=== PATIENT | female | born 1980 | race Caucasian/White ===

== ENCOUNTER → 2016-08-05 | Outpatient (CLI) | payer OTHER | END | disposition home or self-care (01) | LOC: LAB.O 08:59 | PROVIDERS: ATTEND Nurse Practitioner Family | DX: E34.9 Endocrine disorder, unspecified (principal); E55.9 Vitamin D deficiency, unspecified ==

== ENCOUNTER → 2017-01-16 | Outpatient (CLI) | payer OTHER ==
--- NOTE | 2017-01-17 09:41 | RAD ---
EXAM DESCRIPTION: Chest,2 Views CLINICAL HISTORY: WHEEZING COMPARISON: November 22, 2010 TECHNIQUE: PA/lateral FINDINGS: Coarsened infrahilar markings are present bilaterally and more prominent than seen on remote examination. Patchy bronchitis or early bronchopneumonia particularly in the left infrahilar region is suspected. No associated pleural effusions are noted. The heart is normal in size and shape with no evidence of vascular congestion. The lida and mediastinum demonstrate normal contours. The bony spine and chest wall is normal for age in appearance. IMPRESSION: Coarse bilateral left worse than right infrahilar markings suggesting bronchitis or likely orally basilar bronchopneumonia. Electronically signed by: Pablo Pierre MD 01/17/2017 9:40 AM INTERNATIONAL OPERATIONS MANAGER
== END | disposition home or self-care (01) ==
LOC: YCFC.O 11:11
PROVIDERS: ATTEND Nurse Practitioner Family
DX: R06.2 Wheezing (principal)

== ENCOUNTER → 2017-08-17 | Outpatient (CLI) | payer OTHER | LOC: GMAM 19:02 | PROVIDERS: ATTEND Family Medicine | DX: R10.84 Generalized abdominal pain (principal); A09 Infectious gastroenteritis and colitis, unspecified ==

== ENCOUNTER → 2017-08-18 | Outpatient (CLI) | payer OTHER ==
--- NOTE | 2017-08-18 10:52 | CT ---
EXAM DESCRIPTION: Abdoment/Pelvis w/o Contrast CLINICAL HISTORY: 37 years Female, ABDOMINAL PAIN COMPARISON: None available. TECHNIQUE: Contiguous 3 mm axial images were obtained from the lung bases to the level of the proximal femora without the administration of intravenous or oral contrast. Sagittal and coronal reconstructions were reviewed. FINDINGS: Limited evaluation of the solid organs due to the lack of intravenous contrast. THORAX: The imaged lower thorax demonstrates no gross abnormality. LIVER: The liver demonstrates normal size and density with no intrahepatic biliary ductal dilatation. GALLBLADDER: Surgically absent. PANCREAS: Appears normal with no cystic or solid lesions. SPLEEN: Normal ADRENAL GLANDS: Normal with no nodules or masses. KIDNEYS: Both kidneys are symmetric in size and contour with no hydronephrosis or nephrolithiasis or perinephric fluid collections. The visualized ureters appear grossly unremarkable. STOMACH: The stomach is well-distended with no gross abnormality. SMALL BOWEL: The small bowel loops demonstrate variable degrees of distention with no abnormal dilatation or other signs to suggest bowel obstruction. LARGE BOWEL: Majority of the colon is not well-distended limiting evaluation. Multiple appendicoliths are noted. No evidence of free intraperitoneal air or fluid. RETROPERITONEUM: The abdominal aorta is nonaneurysmal with no significant atherosclerosis. The inferior vena cava is normal in size and caliber. Few subcentimeter mesenteric lymph nodes are identified. URINARY BLADDER:The urinary bladder is well-distended with no gross abnormality. The uterus and adnexa appear normal. ADDITIONAL FINDINGS: None. BONES: No significant degenerative changes are identified in the visualized bones.No evidence of osteophytic or osteoblastic lesions. IMPRESSION: 1. Multiple appendicoliths are identified. However no evidence of acute appendicitis. 2. No other acute process is noted. This exam was performed according to our departmental dose-optimization program, which includes automated exposure control, adjustment of the mA and/or kV according to patient size and/or use of iterative reconstruction technique. Electronically signed by: Louise Painting MD 08/18/2017 10:50 AM CDT
== END ==
LOC: CT 08:09
PROVIDERS: ATTEND Family Medicine
DX: R10.84 Generalized abdominal pain (principal); K38.9 Disease of appendix, unspecified

== ENCOUNTER 2017-08-22 18:05 | Inpatient (IN) | payer OTHER ==
--- NOTE | 2017-08-22 18:08 | HP ---
SUPERVISING PHYSICIAN: Mike Condon M.D. CHIEF COMPLAINT: Right lower quadrant pain with nausea and vomiting. HISTORY OF PRESENT ILLNESS: Ms. Cano is a 37 year-old female patient of Dr. Buckley. In the past month she has been having intermittent diarrhea she describes as mucousy with some blood along with some intermittent right lower quadrant pain. The pain has increasingly worsened and is becoming more frequent. She this past week on went to Dr. Stauffer who did a workup, including stool cultures and stool leukocytes along with Clostridium Difficile which were all negative. She continued to have increasing symptoms and presented to Dr. Stauffer's office today at which time she had a CT of the questions completed with contrast and per radiology interpretation there was a finding of multiple appendicoliths with no evidence of acute appendicitis and no other acute processes noted. Laboratory studies last showed she had a white count of 10,600. Chemistries were fairly unremarkable except for a lipase that was slightly elevated at 120. Given the severity of her symptoms and increasing pain and frequency, and findings of the appendicoliths on the CT with physical assessment of rebound tenderness on palpation to the right lower quadrant Dr. Stauffer requested that she be admitted to the hospitial. She is of childbearing age and is not currently on any control as her has had a vasectomy, but her last menstrual period was [address] Stauffer consulted with Dr. Alexandre who recommended the patient be admitted for continued workup and management with fluids, pain management and control of her nausea, and have consultation this morning with Dr. Alexandre as well as provider contracting consultant GI. She presented as a direct admission from [facility] in stable condition. PAST MEDICAL HISTORY: 1. Asthma. 2. History of ulcers. 3. Remote history of irritable bowel syndrome. 4. History of anxiety. 5. Chronic tobacco abuse. PAST SURGICAL HISTORY: 1. Tonsillectomy at age 16. 2. Cholecystectomy in 2009. CURRENT MEDICATIONS: 1. Benadryl 25 mg b.i.d. 2. Patanase 1 to 2 sprays daily. 3. Melatonin 2 tablets at bedtime. 4. Albuterol handheld inhaler 90 mcg in haled every 6 hours as needed. ALLERGIES: KEFLEX WHICH RESULTED IN A SEVERE RASH AND LATEX. FAMILY HISTORY: Grandfather from a heart attack. Mother has history of anemia, stomach ulcers and anxiety. Father had a double lung transplant for pulmonary fibrosis. SOCIAL HISTORY: The patient works as a nurse at [employer]. She is and lives in [place]. She currently smokes 1/2 pack a day and drinks a rare glass of wine and does not use illicit drugs. REVIEW OF SYSTEMS: CONSTITUTIONAL: Denies any chills, fever, but notes some general malaise. HEENT: Denies any headaches, sore throat, nasal congestion, ear aches. RESPIRATORY: Denies any cough, wheezing, shortness of breath, exertional dyspnea. CARDIOVASCULAR: Denies any chest pains, palpitations, syncopal episodes or any edema. GASTROINTESTINAL: As noted in history of present illness, moderate to severe right lower quadrant pain intermittent over the last 2 to 3 weeks with associated nausea, vomiting and diarrhea described as mucousy and bloody at times. GENITOURINARY: Denies any dysuria, hematuria, polyuria or other urinary symptoms. NEUROLOGIC: Denies any ataxia, seizures, syncopal episodes or other neurological deficits. PHYSICAL EXAMINATION: VITAL SIGNS: Temperature 98.0, pulse 86, blood pressure 126/86, respirations 16 , satting 97% on room air. Admission weight 80.3 kg. GENERAL: The patient on admission to the Medical/Surgical floor was in some obvious distress from pain but was able to get comfortable with Dilaudid and was actually having active vomiting which was able to be controlled with Phenergan. She was alert and oriented. Appears well nourished but somewhat dehydrated. HEENT: Tympanic membranes are clear bilaterally. Oropharynx is pink with mucosal membranes being dry. No lesions are noted. NECK: Supple, non-tender with full range of motion. No jugular venous distention. CHEST: Clear to auscultation bilaterally without any rhonchi, wheezing or rales. CARDIOVASCULAR: Regular rate and rhythm without appreciable murmurs, gallops, or rubs. ABDOMEN: Soft with tenderness noted to the right lower quadrant with some rebound tenderness. No guarding. Bowel sounds were active. NEUROLOGIC: She is alert and oriented times three. Cranial nerves II-XII are grossly intact. LABORATORY STUDIES: CBC on admission showed a white count of 9,100 with hemoglobin 14.6, hematocrit 42.6, platelet count 329,000. Differential showed to be without a left shift. Electrolytes showed just a mild hypokalemia with 3.4 potassium, BUN 11, creatinine 0.6, calcium 9.4. Liver function are all within normal limits. Lipase 24, amylase 61. Serum HCG was pending. Lactic acid pending. C reactive protein pending. Sed rate pending. Stool workup including cultures, occult blood, fecal leukocyte esterase and Clostridium Difficile pending. Giardia antigen was pending from the clinic. Stool workup in the clinic showed stool cultures negative for any pathogenic organisms. Leukocyte esterase was negative. Clostridium Difficile antigen and toxin were negative. Rotavirus was negative. RADIOLOGY: CT of the abdomen today with contrast per radiology interpretation showed multiple appendicoliths identified, however no evidence of acute appendicitis and there was no acute process noted. ASSESSMENT: 1. Acute abdominal pain, right lower quadrant, uncertain etiology although concern for a possible acute appendicitis with findings of multiple appendicoliths on current CT. 2. Chronic diarrhea with current stool cultures showing to be without any pathogenic organisms with the patient having a history of previous cholecystectomy. 3. Nausea and vomiting secondary to #1. 4. Moderate dehydration secondary to above. 5. Chronic nicotine abuse. 6. History of asthma. 7. Questionable history of irritable bowel syndrome. 8. History of anxiety currently on no medications. 9. History of ulcers not currently on PPI. 10. Electrolyte imbalance with a mild hypokalemia secondary to from persistent vomiting and extended diarrhea. PLAN: The patient is going to be admitted to the Medical/Surgical floor tonight. She will be given fluids. Further workup to include stool cultures, Clostridium Difficile, leukocytes and occult blood. Dr. Alexandre as well as GI will be consulted in the morning. Given the concern for possible appendicitis and reported bloody, mucousy stools along with severity of symptoms, although afebrile with no obvious leukocytosis, I will go ahead and start her on Zosyn 3.375 every 6 hours until she can have further evaluation in the morning. She will be given a liter of LR followed by D5 half normal saline with 20 of potassium at 150 mL an hour. Will make her NPO for bowel rest. She will be given Dilaudid for pain control and Phenergan and Zofran as needed for nausea. I will plan to do an abdominal series in the morning as well as repeat laboratory studies. Will anticipate length of stay to be at least 2 to 3 days. Until clinically stable, will continue to monitor and treat appropriately. #[id number] [facility]
[2017-08-22] MEDS ORDERED: LACTATED RINGERS 1,000 ML ONE (18:09)
[2017-08-22] MEDS ORDERED: PROMETHAZINE HCL INJ 25 MG in SODIUM CHLORIDE 0.9% 50ML 50 ML IVPB ONE (18:09)
[2017-08-22] MEDS ORDERED: ONDANSETRON INJ 4 MG/2 ML VIAL ONE (18:09)
[2017-08-22] MEDS ORDERED: LACTATED RINGERS 1,000 ML IVS ONE (18:10)
[2017-08-22] MEDS ORDERED: SODIUM CHLORIDE 0.9% (FLUSH) 10 ML SYG IV PRN (18:14)
[2017-08-22] MEDS ORDERED: ONDANSETRON INJ 4 MG/2 ML VIAL IV ONE (18:15)
[2017-08-22] MEDS ORDERED: PROMETHAZINE HCL INJ 25 MG/ML VIAL ONE ×2 (18:18→23:05)
[2017-08-22] MEDS ORDERED: ONDANSETRON INJ 4 MG/2 ML VIAL IV PRN (18:18)
[2017-08-22] MEDS ORDERED: SODIUM CHLORIDE 0.9% 50ML 50 ML ONE ×2 (18:18→23:05)
[2017-08-22] MEDS ORDERED: PANTOPRAZOLE SODIUM IV 40 MG VIAL IV SCH (18:30)
[2017-08-22] MEDS ORDERED: IV SET AND CAP CHANGE INJ INJ SCH (18:30)
[2017-08-22] MEDS ORDERED: HYDROmorphone HCL INJ 2 MG/ML VIAL IV ONE (18:35)
[2017-08-22] MEDS ORDERED: PIPERACILLIN/TAZOBACTAM 3.375 GM VIAL IVPB ONE (19:35)
[2017-08-22] MEDS ORDERED: SODIUM CHL 0.9% 50ML MIN-BAG+ 50 ML IVPB ONE (19:35)
[2017-08-22] MEDS: KCL 20MEQ/D5 1/2NS 1,000 ML IVS PRN (20:59)
[2017-08-22] MEDS: NICOTINE PATCH 14 MG TD SCH (21:00)
[2017-08-22] MEDS ORDERED: SODIUM CHLORIDE 0.9% 100ML 100 ML IVPB ONE (21:09)
[2017-08-22] MEDS: PIPERACILLIN/TAZOBACTAM 3.375 GM in SODIUM CHLORIDE 0.9% 100ML 100 ML IVPB SCH (21:16)
--- NOTE | 2017-08-22 21:35 | CONS ---
DATE OF CONSULTATION: 08/22/17 REFERRING PHYSICIAN: Hospitalist Group, Pablo Parrish NP HISTORY OF PRESENT ILLNESS: The patient is a now 38 year-old female who was admitted with a several month history of nausea, vomiting, diarrhea with blood per rectum, some mucousy diarrhea. She complains of night sweats for approximately a month. She denies bloody vomitus and she has lost some weight. States that her clothes are fitting somewhat loose. PAST MEDICAL HISTORY: 1. Asthma. 2. History of peptic ulcer disease. 3. Possibly irritable bowel syndrome. 4. Vertigo in the past. PAST SURGICAL HISTORY: 1. Status post tonsillectomy. 2. Cholecystectomy. CURRENT MEDICATIONS: 1. Xopenex inhaler. 2. Albuterol inhaler. 3. Melatonin. 4. Benadryl for rest. ALLERGIES: KEFLEX AND LATEX. FAMILY HISTORY: Positive for chronic lung disease, diabetes, depression and coronary artery disease. SOCIAL HISTORY: The patient is . Works as a nurse. She uses alcohol moderately. Has likely at least a 20 pack year history of tobacco abuse and still smokes 1/2 pack a day. She is also the mother of 2 children by vaginal delivery. PHYSICAL EXAMINATION: LABORATORY: At time of admission, potassium 3.4, creatinine 0.67. Liver functions are within normal limits. Amylase and lipase 61 and 64. test is negative. Lactic acid is 1.2, magnesium 2, C reactive protein is 0.5. White blood cell count 91% with 44% neutrophils. Hemoglobin 14.6, platelet count 329,000. CT scan from last Monday was reviewed that shows basically a decompressed left colon, stool in the right colon. No dilated loops of small bowel. No free air or free fluid. There were fecaliths noted in the appendix or appendicoliths, but no inflammatory changes in that area. IMPRESSION: 1. Abdominal pain with mucousy bloody stools for several months. 2. Nausea and vomiting for several months. 3. Night sweats for a month. She has normal lab work and her CT is nondiagnostic. PLAN: I agree with IV hydration, NPO status. Would treat her with Protonix. Do not disagree with the Zosyn. Lab and x-ray ordered for in the morning. Will obtain a GI consultation in the morning if we have one tomorrow in [place]. #[id number] [facility]
[2017-08-22] MEDS: PROMETHAZINE HCL INJ 25 MG in SODIUM CHLORIDE 0.9% 50ML 50 ML IVPB PRN (23:14)
[2017-08-22] MEDS: HYDROmorphone HCL INJ 2 MG/ML VIAL IV PRN (23:24)
[2017-08-23] MEDS ORDERED: PIPERACILLIN/TAZOBACTAM 3.375 GM VIAL IVPB ONE ×4 (02:21→15:03)
[2017-08-23] MEDS ORDERED: SODIUM CHL 0.9% 100ML MINI-BAG 100 ML IVPB ONE (02:21)
[2017-08-23] MEDS: PIPERACILLIN/TAZOBACTAM 3.375 GM in SODIUM CHLORIDE 0.9% 100ML 100 ML IVPB SCH ×3 (03:10→15:12)
[2017-08-23] MEDS ORDERED: PROMETHAZINE HCL INJ 25 MG/ML VIAL ONE ×2 (04:40→10:13)
[2017-08-23] MEDS ORDERED: SODIUM CHLORIDE 0.9% 50ML 50 ML ONE ×2 (04:41→10:15)
[2017-08-23] MEDS: HYDROmorphone HCL INJ 2 MG/ML VIAL IV PRN ×2 (04:46→10:27)
[2017-08-23] MEDS: PROMETHAZINE HCL INJ 25 MG in SODIUM CHLORIDE 0.9% 50ML 50 ML IVPB PRN ×2 (04:46→10:29)
[2017-08-23] MEDS: KCL 20MEQ/D5 1/2NS 1,000 ML IVS PRN (06:16)
--- NOTE | 2017-08-23 07:20 | RAD ---
CLINICAL HISTORY:abdominal pain. :1980. Sex:Female. TECHNIQUE: Supine and upright views of the abdomen. There is no intestinal dilatation. Cholecystectomy clips are noted. There is no mass. There is no free air. There is no opaque calculus. Skeletal structures are unremarkable. The visible lung bases are clear IMPRESSION: 1. No acute radiographic findings.. Electronically signed by: Vick Carson MD 08/23/2017 7:18 AM CDT Workstation: [id number]
[2017-08-23] MEDS ORDERED: SODIUM CHLORIDE 0.9% 100ML 100 ML IVPB ONE ×2 (07:56→15:03)
[2017-08-23] MEDS: NICOTINE PATCH 14 MG TD SCH (08:29)
[2017-08-23] MEDS ORDERED: OLOPATADINE HCL SCH (09:00)
--- NOTE | 2017-08-23 09:48 | PN ---
SUPERVISING PHYSICIAN: Mike Condon MD DATE: 08/23/17 SUBJECTIVE: The patient is still having some abdominal pain, mainly right lower quadrant. She has not had a stool since she has been here in the hospital. Previously on 08/17/17, she had a stool study which was negative for any fecal leukocytes and negative for any cultures or C. difficile as well as rotavirus at that time. She has required Dilaudid for pain control. She is also complaining of some intermittent diaphoresis. OBJECTIVE: VITAL SIGNS: Blood pressure 99/67. Heart rate 74. Respiratory rate 16. Temperature 98.6. Oxygen saturation 100%. GENERAL: Ms. Cano is a 37-year-old female who currently is in severe distress. NEUROLOGIC: Alert and oriented. LUNGS: Clear to auscultation bilaterally. CARDIOVASCULAR: Regular rate and rhythm. Normal S1, S2. ABDOMEN: Soft. She does have hypoactive bowel sounds. She has tenderness to palpation in the right lower quadrant, even a little bit on the left lower quadrant as well. No epigastric tenderness to palpation and at this time. GENITOURINARY: Deferred. EXTREMITIES: Lower extremities with no edema. Pulses 2+. LABORATORY: Labs were reviewed and show a normal CBC with a differential showing 21% neutrophils, 70% lymphocytes, 6% monocytes, 3% eosinophils. Chemistry unremarkable. CRP and ESR were negative. Lipase 19. Abdominal x- ray done this morning was negative. ASSESSMENT: 1. Right lower quadrant abdominal pain. 2. Diarrhea. 3. Dehydration secondary to nausea, vomiting and diarrhea. 4. Chronic nicotine dependency. PLAN: The surgeon has been consulted and is not planning on any sort of intervention at this point as the workup has been negative. I have contacted the GI specialist, Dr. Montero, and he is going to see the patient. He has not given any orders as of yet. Due to the normal labs, I will probably not recheck any tomorrow and we will pretty much defer to Dr. Montero on further treatment at this point since the workup has been negative. [facility][id number] [facility]
[2017-08-23] MEDS ORDERED: PEG-ELECTROLYTE 4,000 ML BTTL PO ONE (09:51)
--- NOTE | 2017-08-23 13:32 | CONS ---
DATE OF CONSULTATION: 08/23/17 REFERRING PHYSICIAN: Hospitalist group, Pablo Parrish NP HISTORY OF PRESENT ILLNESS: This is a 37-year-old female with no significant medical history aside from peptic ulcer disease and questionable irritable bowel syndrome presenting with worsening chronic diarrhea. She admits to over four year history of loose stools and given a presumed diagnosis of irritable bowel syndrome. For the last two months, worsening diarrhea, increased frequency, up to 15 bowel movements a day, associated mucus, blood and fecal incontinence. In addition, she admits to nocturnal awakening. Her last colonoscopy was over 7 years ago and was grossly unremarkable based on her verbal report. At the time, she had a cholecystectomy. She was recently admitted for worsening diarrhea, but also association abdominal pain mostly located in the right jorge-abdomen, chills, no fevers. No sick contacts. No recent antibiotic use aside from Flagyl during hospital stay. Her grandmother may have been diagnosed with Crohn's disease, but she is not sure of this. She also admits to frequent night sweats. Weight overall stable. PAST MEDICAL HISTORY: 1. Asthma. 2. History of peptic ulcer disease. 3. Possible irritable bowel syndrome. 4. Vertigo. PAST SURGICAL HISTORY: 1. Tonsillectomy. 2. Cholecystectomy. CURRENT MEDICATIONS: 1. Xopenex. 2. Albuterol. 3. Melatonin. 4. Benadryl. ALLERGIES: KEFLEX, LATEX. FAMILY HISTORY: Possible Crohn's disease in the grandmother. SOCIAL HISTORY: No alcohol, no drugs. 20-pack year of smoking, actively one pack a day. LABORATORY: At time of admission, potassium 3.4, creatinine 0.56. Liver function tests normal. Amylase and lipase within normal limits at 61 and 64. Lactic acid 1.2. Hemoglobin 14.6, platelet count 329,000. CRP 0.5. WBC 9,100 with 90% neutrophils. C. difficile antigen and toxin negative. Rotavirus negative. ESR 15. Other stool studies including culture for Salmonella, Shigella, E. coli, Campylobacter, Yersinia negative. Negative for fecal leukocytes. RADIOLOGY: CT abdomen and pelvis: Decompressed left colon, stool in the right colon, nondilated loops of small bowel, no free air or free fluid. Fecaliths were noted in the appendix, but no inflammatory changes in this area. ASSESSMENT/PLAN: This is a 29-year-old female with acute on chronic diarrhea and abdominal pain. No positive inflammatory markers noted, evidence of anemia or significant inflammatory changes in cross-sectional imaging. However, given the severity of her symptomatology, need to rule out colonic inflammatory process. We will plan for a colonoscopy with terminal ileum intubation, random colon biopsies. #[id number] [facility]
[2017-08-23 17:58] VITALS: BP 127/78; TEMP 97.8; O2SAT 96
--- NOTE | 2017-08-24 01:07 | DS ---
SUPERVISING PHYSICIAN: Mike Condon M.D. ADMISSION DIAGNOSIS: 1. Acute abdominal pain right lower quadrant. 2. Chronic diarrhea with noted negative stool cultures. 3. Nausea and vomiting with dehydration. 4. Chronic nicotine dependency. 5. Possible irritable bowel syndrome. DISCHARGE DIAGNOSIS: 1. Acute abdominal pain right lower quadrant. 2. Chronic diarrhea with noted negative stool cultures. 3. Nausea and vomiting with dehydration. 4. Chronic nicotine dependency. 5. Possible irritable bowel syndrome. HOSPITAL COURSE: Ms. Cano is a 37 year-old female who is a patient of Dr. Stauffer's. She states for the past couple of months she has had some diarrhea and for the last month or so this has been associated with some abdominal pain and intermittent sweats. She states that sometimes the stool is loose stool and sometimes it is mucousy with some blood. She was seen by Dr. Stauffer and had a CT scan of the abdomen which was pretty much unremarkable. She has stool studies which were negative as well. When she went to the followup appointment with Dr. Stauffer today, she was not having any improvement in her symptoms and therefore was referred for admission. She was seen by Dr. Alexandre initially and he did not recommend any surgical intervention. It was highly unlikely that there was any appendicitis. However, he was in agreement that she did need a GI consultation. I spoke with Dr. Montero who came in this morning and saw the patient, and recommended a colonoscopy. He ordered Golytely as well as 2 soap suds enemas. She actually went back for the procedure but Anesthesia felt it was risky to do the procedure due to her continued vomiting and possibility for aspiration given she has just had the Golytely. Therefore the procedure was cancelled. He still recommended the colonoscopy, but given the fact that she had normal white count and did not appear to be infectious, it was felt that she could be discharged and this be done as an outpatient. I spoke with Dr. Stauffer and he agreed. Will see her tomorrow in the office at 2:45 on 08/24/17 for followup. At that point, he is going to try to set up an outpatient colonoscopy with Dr. Bangura who will be here next week. I spoke with Dr. Alexandre who agrees with that plan as well. Dr. Condon who is my collaborating physician, actually came and visited with the patient regarding the plan and she was in agreement and wanted to go home. Therefore she was discharged in stable condition today. PLAN: I have provided Zofran as well as Promethazine for medications to be taken at home. I have recommended a clear liquid diet and advance as tolerated as well. #[id number] [facility]
== END 2017-08-23 17:30 | disposition home or self-care (01) | DRG 379 ==
LOC: MS 18:05
PROVIDERS: ADMIT Nurse Practitioner Family; ATTEND Nurse Practitioner
DX: K92.1 Melena (principal); J45.909 Unspecified asthma, uncomplicated; E87.6 Hypokalemia; R61 Generalized hyperhidrosis; E86.0 Dehydration; K58.0 Irritable bowel syndrome with diarrhea; R11.2 Nausea with vomiting, unspecified; R10.31 Right lower quadrant pain; F41.9 Anxiety disorder, unspecified; F17.210 Nicotine dependence, cigarettes, uncomplicated; Z53.09 Procedure and treatment not carried out because of other contraindication; Z87.11 Personal history of peptic ulcer disease; Z91.040 Latex allergy status; Z88.1 Allergy status to other antibiotic agents; Z79.899 Other long term (current) drug therapy

== ENCOUNTER → 2017-09-01 | Outpatient (CLI) | payer OTHER | LOC: LAB.O 13:19 | PROVIDERS: ATTEND Internal Medicine Gastroenterology | DX: R19.7 Diarrhea, unspecified (principal) ==

== ENCOUNTER → 2018-12-13 | Outpatient (CLI) | payer BC ==
--- NOTE | 2018-12-13 11:48 | RAD ---
EXAM DESCRIPTION: Foot,Right 3 Views CLINICAL HISTORY: PAIN IN RIGHT FOOT COMPARISON: None Available. TECHNIQUE: AP, LATERAL, AND OBLIQUE FINDINGS: The visualized bones appear well mineralized. No acute fracture or dislocation. The soft tissues appear grossly unremarkable. IMPRESSION: Normal radiographs of the right foot. Electronically signed by: Louise Painting MD 12/13/2018 11:46 AM CDT
== END ==
LOC: RAD 11:18
PROVIDERS: ATTEND Orthopaedic Surgery
DX: M79.671 Pain in right foot (principal)

== ENCOUNTER → 2019-05-17 | Outpatient (CLI) | payer BC | DX: F33.1 Major depressive disorder, recurrent, moderate (principal); F41.1 Generalized anxiety disorder; E55.9 Vitamin D deficiency, unspecified; D51.8 Other vitamin B12 deficiency anemias ==

== ENCOUNTER 2019-07-05 05:40 | Day surgery (SDC) | payer BC ==
[2019-07-05] MEDS ORDERED: LACTATED RINGERS 1,000 ML ONE ×2 (06:53→13:06)
[2019-07-05] MEDS ORDERED: LIDOCAINE 1% 10 ML VIAL INJ ONE (07:00)
[2019-07-05] MEDS ORDERED: DEXAMETHASONE INJ 4 MG/ML VIAL ONE (07:00)
[2019-07-05] MEDS ORDERED: SODIUM CHLORIDE 0.9% 50 ML VIAL ONE (07:00)
[2019-07-05] MEDS ORDERED: FAMOTIDINE 10 MG/ML ML IV ONE (07:00)
[2019-07-05] MEDS ORDERED: MAGNESIUM SULFATE INJ 1 GM/2 ML VIAL ONE (07:00)
[2019-07-05] MEDS ORDERED: diphenhydrAMINE HCL 50 MG/ML VIAL ONE (07:00)
[2019-07-05] MEDS ORDERED: PROPOFOL 200 MG/20 ML VIAL IV ONE (07:00)
[2019-07-05] MEDS ORDERED: BUPIVACAINE 0.5% W/EPI 30 ML VIAL INJ ONE ×2 (08:26→11:07)
[2019-07-05] MEDS ORDERED: LACTATED RINGERS 1,000 ML IVS ONE (09:32)
[2019-07-05] MEDS ORDERED: MIDAZOLAM INJ 2 MG/2 ML VIAL ONE (10:57)
[2019-07-05] MEDS ORDERED: fentaNYL CITRATE INJ 50 MCG/ML 2 ML AMP ONE ×2 (10:57→12:33)
[2019-07-05] MEDS ORDERED: ROCURONIUM BROMIDE 10 MG/ML VIAL ONE (10:57)
[2019-07-05] MEDS ORDERED: DEXMEDETOMIDINE HCL 200 MCG/2 ML INJ IV ONE (10:57)
[2019-07-05] MEDS ORDERED: KETAMINE HCL 100 MG/ML VIAL ONE (10:57)
[2019-07-05] MEDS ORDERED: BUPIVACAINE LIPOSOME 13.3 MG/ML VIAL INJ ONE (11:24)
[2019-07-05] MEDS ORDERED: SUGAMMADEX SODIUM 200 MG/2 ML VIAL IV ONE (12:15)
[2019-07-05] MEDS ORDERED: ONDANSETRON INJ 4 MG/2 ML VIAL ONE (13:03)
[2019-07-05] MEDS: HYDROmorphone HCL INJ 2 MG/ML VIAL ONE ×5 (13:07→13:47)
[2019-07-05] MEDS ORDERED: MEPERIDINE HCL 50 MG/ML VIAL ONE (13:11)
--- NOTE | 2019-07-05 13:28 | OP ---
DATE OF PROCEDURE: 07/05/19 PREOPERATIVE DIAGNOSIS: 1. Desiring sterilization. 2. Internal and external hemorrhoids. POSTOPERATIVE DIAGNOSIS: 1. Desiring sterilization. 2. Internal and external hemorrhoids. PROCEDURE: 1. Laparoscopic bilateral tubal ligation. 2. Complete excision of internal and external hemorrhoids x2. 3. Bilateral pudendal nerve blocks for postoperative pain control. SURGEON: Mike Early MD. ANESTHESIA: General. FINDINGS: Both tubes were easily identified. There were no scars in the pelvis. They were both divided, ligated and cauterized. Two large hemorrhoid complexes were seen both right anterior and posterior. There was another one more towards the posterior midline that was combined in the right posterior closure. The left side did not have significant internal or external hemorrhoids. There were some external, but not very prominent. COMPLICATIONS: None. ESTIMATED BLOOD LOSS: Minimal. SPECIMEN: Hemorrhoids. PLAN: Discharge. INDICATION: As stated. PROCEDURE: General anesthesia was induced. She was prepped and draped in sterile fashion. 0.5% Marcaine with epinephrine was used at all incision sites. While maintaining upward traction, a mellisa was made at the base of the umbilicus. Veress needle was introduced. There was free flow of fluid into the peritoneal cavity, which was insufflated to an appropriate level of CO2 gas. The 5 mm trocar was placed through the previous incision we opened up. The abdomen was insufflated. There were two other 5 mm ports placed under direct vision without difficulty. The patient was placed head down. The small bowel was gently maneuvered out of the pelvis. We then easily identified the fallopian tubes. The right one was lifted through the 0 PDS Endoloop with care to get about 2 cm from the uterus and then it was tied into loop and then divided with scissors. The tips were then cauterized. The left side was also done. I easily identified the fallopian tube. It was elevated, a loop placed around the bottom creating a large loop. It was tied securely and then divided with scissors and cauterized at its base. Photodocumentation was performed. The procedure went well. At that time, the abdomen was desufflated. The wounds were closed with Monocryl and dressings were applied. She was in the lithotomy position and we examined. The hemorrhoids are more prominent now than seen in the office, a large right posterior, right anterior and a posterior midline complex. The right posterior was taken first with the speculum inserted without difficulty. We ligated the base of the pile and then injected local anesthesia. Bilateral pudendal nerve blocks were also performed, 3 cc on either side based on anatomic landmarks. On the right side, I did get a flash while inserting the needle, so we re-inserted in a different area as we injected. I then cut out the hemorrhoid to the internal sphincter muscles which were seen. We dissected off the muscle fibers and then closed it with a running locking stitch. The one on the posterior midline was right next to it. We could not do any additional excision for fear of causing stricturing or loss of tissue, so this was combined with our closure proximally. We had a good cosmetic result at this time and by the end of the case, that hemorrhoid had disappeared. The right anterior was then taken in a similar fashion. It was not quite as large, but again in an elliptical incision, removed. The base was ligated and closed with a running locking stitch as well. When we were done here, we examined the left side and did not find any significant internal hemorrhoids to band. There were small external hemorrhoids, but non-swollen, non-thrombosed. More local anesthesia was placed in the area and then placed to gauze. She tolerated the procedure, was awakened and taken to Recovery to be discharged. #[id number] [facility]
[2019-07-05] MEDS ORDERED: HYDROcodone 5MG/APAP 325MG 1 EA TAB PO ONE (14:25)
[2019-07-05] MEDS ORDERED: HYDROcodone 5MG/APAP 325MG 1 EA TAB ONE (14:26)
[2019-07-05 15:34] VITALS: BP 109/66; TEMP 98.5; O2SAT 96
== END 2019-07-05 15:20 | disposition home or self-care (01) ==
LOC: AMB 05:40
PROVIDERS: ATTEND Surgery
DX: Z30.2 Encounter for sterilization (principal); K64.8 Other hemorrhoids; K64.4 Residual hemorrhoidal skin tags; F17.200 Nicotine dependence, unspecified, uncomplicated; Z88.1 Allergy status to other antibiotic agents; Z91.040 Latex allergy status; Z79.899 Other long term (current) drug therapy; F41.9 Anxiety disorder, unspecified; F32.9 Major depressive disorder, single episode, unspecified; J45.909 Unspecified asthma, uncomplicated; K21.9 Gastro-esophageal reflux disease without esophagitis
CPT/HCPCS: 00851; 36415; 46260; 58670; 84703; A4216; J1100; J1170; J1200; J2175; J2250; J2405; J3010; J3475; J3490; J7120